=== PATIENT | male | born 1955 | race Caucasian/White ===

== ENCOUNTER → 2017-01-14 | Outpatient (CLI) | payer BC ==
[~2017-01-14] MED LIST: ASPCH81X PO; ASPI325T4 PO; ATOR-22 PO; ATOR-24 PO; CHOL20009 PO; CHOLTAB3 PO; DAPA1TAB2 PO; INSPMPNVLG; METO25TA3 PO; NXM/40 PO; OMEP40CA41 PO; TAMS0.4C38 PO; TAMS0.4C59 PO; TPRSR/25 PO
[2017-01-14 09:57] LABS: BLOOD UREA NITROGEN 21 mg/dl (7-18); BUN/CREATININE RATIO 17.5 (10-20); CALCIUM 8.6 mg/dl (8.5-10.1); CARBON DIOXIDE 28 mmol/L (21-32); CHLORIDE 107 mmol/L (98-107); GLUCOSE 145 mg/dl (70-99); POTASSIUM 4.4 mmol/L (3.5-5.1); SODIUM 141 mmol/L (136-145)
[2017-01-14 10:09] LABS: ALB/GLOB RATIO 0.9 (0.9-2); ALKALINE PHOSPHATASE 76 U/L (45-117); ALT/SGPT 23 U/L (12-78); AST/SGOT 43 U/L (15-37); CHOLESTEROL 151 mg/dl (0-200); HDL CHOLESTEROL 38 mg/dl; TRIGLYCERIDES 131 mg/dl (0-150); VERY LOW DENSITY LIPOPROT CALC 26 mg/dl
[2017-01-14 10:13] LABS: ESTIMATED AVERAGE GLUCOSE 157 mg/dl; HA1C FLAG Normal (Normal)
== END | disposition home or self-care (01) ==
LOC: C.LAB 06:42
PROVIDERS: ATTEND Internal Medicine
DX: E78.2 Mixed hyperlipidemia (principal); E10.9 Type 1 diabetes mellitus without complications; E55.9 Vitamin D deficiency, unspecified; R94.6 Abnormal results of thyroid function studies; Z12.5 Encounter for screening for malignant neoplasm of prostate

== ENCOUNTER → 2017-03-12 | Outpatient (CLI) | payer BC ==
[~2017-03-12] MED LIST changes: -ASPI325T4 PO; -ATOR-22 PO; -CHOLTAB3 PO; -DAPA1TAB2 PO; +DAPA1TAB8 PO; -NXM/40 PO; -TAMS0.4C59 PO; -TPRSR/25 PO
[2017-03-12 11:13] LABS: ALT/SGPT 28 U/L (12-78); AST/SGOT 46 U/L (15-37)
== END | disposition home or self-care (01) ==
LOC: C.LABBC 08:38
PROVIDERS: ATTEND Internal Medicine Cardiovascular Disease
DX: E78.5 Hyperlipidemia, unspecified (principal); I25.10 Atherosclerotic heart disease of native coronary artery without angina pectoris

== ENCOUNTER → 2017-03-30 | Day surgery (SDC) | payer BC ==
[2017-03-08 15:38] VITALS: Ht 175.3 cm; Wt 113.6 kg
[~2017-03-30] VITALS: Ht 175.3 cm; Wt 113.6 kg
[~2017-03-30] MED LIST changes: +500ML BSS 0.3ML EPI 1:1000PF IRRIG ONE; +ACETAMINOPHEN 325 MG TAB PO PRN; +AMVISC PLUS 0.8ML SYRINGE INT OCU ONE; +ATROPINE SULFATE 0.1 MG/ML 5ML SYR IV PRN; +ENDOCOAT 0.85ML SYRINGE INT OCU ONE; +EpHEDrine SULFATE INJ 50 MG/ML AMP IV PRN; +EpINEphrine INJ 1MG/ML AMP 1 MG/ML AMP ONE; +LACTATED RINGER'S 1000ML 500 ML IV SCH; +LIDOCAINE 4% OP SOLN DROP CHARGE ONE; +LIDOCAINE 4% OP SOLN DROP CHARGE OPL SCH; +LIDOCAINE HCL 1% MPF 2 ML VIAL ONE; +MIDAZOLAM HCL 1 MG/ML 2ML VIAL ONE; +MIX: 4ML BSS 1ML EPI 1:1000 PF TOP ONE; +MOXIFLOXACIN OPH SOLN PER DROP CHARGE ONE; +PHENYLEPHRINE HCL 10% OP SOLN 5 ML BTL OPL ONE; +POVIDONE-IODINE OP SOLN 30 ML BTL ONE; +PROPARACAINE 0.5% OP SOLN PER DROP CHARGE OPL SCH; +PROPARACAINE HCL 0.5% OP SOLN 15 ML BTL OPL ONE; +TOBRAMYCIN/DEXAMETHASONE OPH OINT PER APPLN CHARGE ONE
--- NOTE | 2017-03-30 08:09 | History & Physical Bridge - SC ---
H&P Re-Evaluation Bridge Note: I have examined the patient, reviewed the History & Physical and in the interval since the performance of the History & Physical I have noted the following changes of clinical significance: No changes noted. Left eye femtosecond laser-assisted cataract surgery.
[2017-03-30] MEDS: PHENYLEPHRINE HCL 2.5% OP SOLN PER DROP CHARGE OPL SCH ×3 (08:29→08:38)
[2017-03-30] MEDS: TROPICAMIDE 1% OP SOLN PER DROP CHARGE OPL SCH ×3 (08:30→08:39)
[2017-03-30] MEDS: CYCLOPENTOLATE HCL 1% OP SOLN PER DROP CHARGE OPL SCH ×3 (08:31→08:41)
[2017-03-30] MEDS: MOXIFLOXACIN OPH SOLN PER DROP CHARGE OPL SCH ×3 (08:32→08:42)
--- NOTE | 2017-03-30 09:29 | [facility] Post Operative Brief Note ---
Immediate Operative Summary Operative Date Mar 30, 2017. Pre-Operative Diagnosis Left Eye cataract Post-Operative Diagnosis same Procedure(s) Performed Left Cataract Phacoemulsification With Intraocular Lens Implant Surgeon Dr. Justin Fleming Correctional Captain Surgeon(s) 0 Estimated Blood Loss 0 Findings left cataract Specimens none Complication(s) None Disposition
[2017-03-30 09:31] VITALS: TEMP 36.4
--- NOTE | 2017-03-30 09:31 | [facility] Operative Report ---
Operative Report Date of Service Mar 30, 2017. Operative Report DATE OF OPERATION: 03/30/17 PREOPERATIVE DIAGNOSIS: Senile nuclear cataract and astigmatism, left eye POSTOPERATIVE DIAGNOSIS: Senile nuclear cataract and astigmatism, left eye PROCEDURE PERFORMED: Femtosecond laser-assisted phacoemulsification with intraocular lens implantation, left eye SURGEON: Dr. Miguel Fleming ANESTHESIA: Topical with 1% intracameral lidocaine and monitored anesthesia care COMPLICATIONS: None DESCRIPTION OF PROCEDURE: After positively identifying the patient both verbally and by wristband in the preoperative area, the left eye was marked as the operative eye. Using a sterile marker, the 3:00, 6:00, and 9:00 positions on the limbus were marked after placing a drop of proparacaine. The patient was first brought to the laser room where the femtosecond laser was used to create the capsulotomy, lens fragmentation, arcuate incisions, and main incision. The patient was then brought back to the operating room by the anesthesia and nursing staff where they were given a drop of tetracaine and betadine into the operative eye. They were then sterilely prepped and draped in the standard fashion typical for ophthalmic surgery. Steri-strips were placed along the upper eyelids to keep the lashes back, and a lid speculum was placed into the operative eye. At this point, a documented time out was performed with members of the ophthalmology, nursing, and anesthesia staffs all agreeing upon the correct patient, correct location for surgery, correct procedure, and correct type and power of intraocular lens to be implanted. The microscope was then swung into position. Then, a paracentesis wound was made using a sideport blade. Then, in sequence, 1% preservative-free lidocaine followed by Endocoat viscoelastic was injected into the anterior chamber. Next , the main incision was opened with a Abhi spatula, and Utrata forceps were used to remove the capsulotomy. Hydrodissection was then performed with BSS on a flat-tip cannula. Next, the phacoemulsification handpiece was introduced into the eye and used to remove the nucleus in a [id number] fashion. This was done without complication and then the irrigation-aspiration handpiece was introduced into the eye and used to remove all remaining cortical and epinuclear material. Amvisc was then injected into the anterior chamber as well as into the capsular bag and using the lens injector system, a ZXR00 9.0 D lens, serial number [id number], and expiration date 12/2021 was injected into the capsular bag and rotated into the correct position. Next, the irrigation- aspiration handpiece was used to remove all remaining Amvisc. BSS was used to hydrate the main wound, and then BSS was injected into the paracentesis site to reach physiologic pressure and then the main wound was checked and found to be watertight. The patient was given drops of Vigamox and tobradex ointment into the operative eye, and then the surrounding area was cleaned and dried. A clear plastic shield was placed over the eye and the patient was then sat up and taken from the operating room by the anesthesia staff having tolerated the procedure well and suffering no complications. DISPOSITION: The patient was returned to the recovery room in stable condition. I attest to the content of the Intraoperative Record and any orders documented therein. Any exceptions are noted below.
--- NOTE | 2017-03-30 09:32 | Discharge Instructions-SurgCtr ---
Discharge Instructions Date of Service Mar 30, 2017. Visit Reason for Visit: Cataract Left Eye Discharge Discharge Diagnosis / Problem: left cataract Discharge Goals Goal(s): Decrease discomfort, Improve function Activity Recommendations Activity Limitations: as noted below Anesthesia . Post Anesthesia Instructions: If you have had General Anesthesia or IV Sedation: * Do not drive today. * Resume driving when surgeon permits. * Do not make important decisions or sign legal documents today. * Call surgeon for: 1. Temperature elevations greater than 101 degrees F. 2. Uncontrollable pain. 3. Excessive bleeding. 4. Persistent nausea and vomiting. 5. Medication intolerance (nausea, vomiting or rash). * For nausea and vomiting use only clear liquids such as: tea, soda, bouillon until nausea subsides, then gradually increase diet as tolerated. * If you have any concerns or questions, call your surgeon's office. If physician is unavailable and it is an emergency, call 911 or go to the nearest emergency room. . Instructions / Follow-Up Instructions / Follow-Up ACTIVITY RECOMMENDATIONS: * Light activities. * You may walk outside, read, watch television. * You may notice redness on the white part of the eye and some blurry vision - this is normal. MEDICATIONS: Resume previous medications unless instructed otherwise by your surgeon. Start all eye drops at 11:30 am today: * Eye drops (today): Prednisone - one drop in operative eye every 2 hours while awake Ofloxacin - one drop in operative eye every 2 hours while awake Ilevro - one drop in operative eye daily SPECIAL CARE INSTRUCTIONS: * Tape plastic shield over eye to sleep at night. Call your doctor at with any concerns or problems. FOLLOW UP VISIT: Follow-up with Dr Fleming at [facility] as scheduled. Diet Recommendations Home Diet: no limitations Procedures Procedures Performed: Left Cataract Phacoemulsification With Intraocular Lens Implant Pending Studies Studies pending at discharge: no Medical Emergencies . Who to Call and When: Medical Emergencies: If at any time you feel your situation is an emergency, please call 911 immediately. . Non-Emergent Contact Non-Emergency issues call your: Surgeon . . "Provider Documentation" section prepared by Miguel Fleming. .
[2017-03-30 10:10] VITALS: BP 138/84; PULSE 63; O2SAT 97
--- NOTE | 2017-03-30 10:15 | Anesthesia Progress Nt - [facility] ---
Anesthesia Post Op Note Date & Time Mar 30, 2017 at 10:15 Vital Signs Pain Intensity: 4 Vital Signs Past 12 Hours Date Time Temp Pulse Resp B/P (MAP) Pulse Ox O2 Delivery O2 Flow Rate FiO2 03/30/17 10:10 63 16 138/84 (102) 97 Room Air 03/30/17 09:31 36.4 65 16 145/90 (108) 95 Room Air 03/30/17 09:00 64 154/80 97 03/30/17 07:56 36.5 71 18 137/89 (105) 95 Room Air Notes Mental Status: alert / awake / arousable, participated in evaluation Pt Amnestic to Procedure: Yes Nausea / Vomiting: adequately controlled Pain: adequately controlled Airway Patency, RR, SpO2: stable & adequate BP & HR: stable & adequate Hydration State: stable & adequate Anesthetic Complications: no major complications apparent
== END | disposition home or self-care (01) ==
LOC: X.SURG 07:46
PROVIDERS: ATTEND Ophthalmology
DX: H25.12 Age-related nuclear cataract, left eye (principal); H52.202 Unspecified astigmatism, left eye; E11.9 Type 2 diabetes mellitus without complications; I10 Essential (primary) hypertension; E78.00 Pure hypercholesterolemia, unspecified

== ENCOUNTER → 2017-04-09 | Outpatient (CLI) | payer BC ==
[~2017-04-09] MED LIST changes: -500ML BSS 0.3ML EPI 1:1000PF IRRIG ONE; -ACETAMINOPHEN 325 MG TAB PO PRN; -AMVISC PLUS 0.8ML SYRINGE INT OCU ONE; -ATROPINE SULFATE 0.1 MG/ML 5ML SYR IV PRN; -ENDOCOAT 0.85ML SYRINGE INT OCU ONE; -EpHEDrine SULFATE INJ 50 MG/ML AMP IV PRN; -EpINEphrine INJ 1MG/ML AMP 1 MG/ML AMP ONE; -LACTATED RINGER'S 1000ML 500 ML IV SCH; -LIDOCAINE 4% OP SOLN DROP CHARGE ONE; -LIDOCAINE 4% OP SOLN DROP CHARGE OPL SCH; -LIDOCAINE HCL 1% MPF 2 ML VIAL ONE; -MIDAZOLAM HCL 1 MG/ML 2ML VIAL ONE; -MIX: 4ML BSS 1ML EPI 1:1000 PF TOP ONE; -MOXIFLOXACIN OPH SOLN PER DROP CHARGE ONE; -PHENYLEPHRINE HCL 10% OP SOLN 5 ML BTL OPL ONE; -POVIDONE-IODINE OP SOLN 30 ML BTL ONE; -PROPARACAINE 0.5% OP SOLN PER DROP CHARGE OPL SCH; -PROPARACAINE HCL 0.5% OP SOLN 15 ML BTL OPL ONE; -TOBRAMYCIN/DEXAMETHASONE OPH OINT PER APPLN CHARGE ONE
[2017-04-09 09:13] LABS: ALT/SGPT 26 U/L (12-78); AST/SGOT 39 U/L (15-37)
== END | disposition home or self-care (01) ==
LOC: C.LAB 08:10
PROVIDERS: ATTEND Internal Medicine Cardiovascular Disease
DX: E78.5 Hyperlipidemia, unspecified (principal)

== ENCOUNTER → 2017-04-20 | Outpatient (CLI) | payer BC ==
[~2017-04-20] MED LIST changes: +DAPA1TAB2 PO; -DAPA1TAB8 PO
--- NOTE | 2017-04-20 07:38 | DIAGNOSTIC IMAGING REPORT ---
ULTRASOUND RIGHT UPPER QUADRANT ABDOMEN CLINICAL HISTORY: Elevated hepatic transaminases. Hemangioma.. COMPARISON STUDY: Chest CT dated 05/08/2015. TECHNIQUE: Real-time, grayscale, and color flow sonography of the right upper quadrant of the abdomen was performed. Images are reviewed in the transverse and longitudinal planes. FINDINGS: Liver: The liver is normal in size and demonstrates heterogeneously increased echotexture consistent with hepatic steatosis. There is a 1.7 cm slightly hypoechoic lesion seen in the inferior right lobe. There is no intrahepatic biliary ductal dilatation. The main portal vein is patent. Gallbladder: The gallbladder is surgically absent. The common bile duct measures up to 0.6 cm in diameter. Pancreas: Not well visualized due to overlying bowel gas. Right kidney: Survey images of the right kidney demonstrate mild cortical atrophy. There is no hydronephrosis. Ascites: None. IMPRESSION: 1. Hepatic steatosis. 2. The gallbladder is surgically absent. 3. There is a 1.7 cm slightly hypoechoic lesion in the inferior right lobe of the liver. When correlated with the 05/08/2015 examination is likely represents a benign hemangioma. The appearance is atypical, likely due to background steatosis. Electronically signed by: Kavon Moreno M.D. 04/20/2017 7:36 AM Dictated Date/Time: 04/20/2017 7:34 AM
== END | disposition home or self-care (01) ==
LOC: C.ULTR 06:54
PROVIDERS: ATTEND Internal Medicine
DX: D18.03 Hemangioma of intra-abdominal structures (principal); R94.5 Abnormal results of liver function studies; K76.0 Fatty (change of) liver, not elsewhere classified

== ENCOUNTER → 2017-05-04 | Day surgery (SDC) | payer BC ==
[2017-04-07 14:38] VITALS: BMI 37.0
[2017-04-18 12:15] VITALS: Ht 175.3 cm; Wt 113.6 kg
[~2017-05-04] VITALS: Ht 175.3 cm; Wt 113.6 kg
[~2017-05-04] MED LIST changes: +500ML BSS 0.3ML EPI 1:1000PF IRRIG ONE; +ACETAMINOPHEN 325 MG TAB PO PRN; +AMVISC PLUS 0.8ML SYRINGE INT OCU ONE; +ATROPINE SULFATE 0.1 MG/ML 5ML SYR IV PRN; +AcetaZOLAMIDE 250 MG TAB PO SCH; +BSS FLUSH ONE; +CYCLOPENTOLATE HCL 1% OP SOLN PER DROP CHARGE OPR SCH; +ENDOCOAT 0.85ML SYRINGE INT OCU ONE; +EpHEDrine SULFATE INJ 50 MG/ML AMP IV PRN; +EpINEphrine INJ 1MG/ML AMP 1 MG/ML AMP ONE; +FENTANYL CITRATE INJ 50 MCG/1 ML 2 ML VIAL IV PRN; +FENTANYL CITRATE INJ 50 MCG/1 ML 2 ML VIAL ONE; +FLUMAZENIL 0.1 MG/1 ML 10 ML VIAL IV PRN; +LABETALOL HCL IV 5 MG/ML 20ML IV PRN; +LACTATED RINGER'S 1000ML 500 ML IV SCH; +LIDOCAINE 4% OP SOLN DROP CHARGE ONE; +LIDOCAINE 4% OP SOLN DROP CHARGE OPR SCH; +LIDOCAINE HCL 1% MPF 2 ML VIAL ONE; +MEPERIDINE HCL 25 MG/ML CARP IV PRN; +MIDAZOLAM HCL 1 MG/ML 2ML VIAL ONE; +MIX: 4ML BSS 1ML EPI 1:1000 PF TOP ONE; +MOXIFLOXACIN OPH SOLN PER DROP CHARGE ONE; +MOXIFLOXACIN OPH SOLN PER DROP CHARGE OPR SCH; +NALOXONE HCL 0.4 MG/1 ML VIAL/CARP IV PRN; +ONDANSETRON INJ 2 MG/ML 2 ML VIAL IV PRN; +PHENYLEPHRINE 100MCG/ML 5ML SYR IV PRN; +PHENYLEPHRINE HCL 10% OP SOLN 5 ML BTL OPR ONE; +PHENYLEPHRINE HCL 2.5% OP SOLN PER DROP CHARGE OPR SCH; +POVIDONE-IODINE OP SOLN 30 ML BTL ONE; +PROPARACAINE 0.5% OP SOLN PER DROP CHARGE OPR SCH; +PROPARACAINE HCL 0.5% OP SOLN 15 ML BTL OPR ONE; +TOBRAMYCIN/DEXAMETHASONE OPH OINT PER APPLN CHARGE ONE; +TROPICAMIDE 1% OP SOLN PER DROP CHARGE OPR SCH
--- NOTE | 2017-05-04 06:37 | History & Physical Bridge - [place] ---
H&P Re-Evaluation Bridge Note: I have examined the patient, reviewed the History & Physical and in the interval since the performance of the History & Physical I have noted the following changes of clinical significance: No changes noted. Right eye cataract surgery.
[2017-05-04] MEDS: PHENYLEPHRINE HCL 10% OP SOLN PER DROP CHARGE OPR SCH ×3 (07:09→07:19)
[2017-05-04] MEDS: TROPICAMIDE 1% OP SOLN PER DROP CHARGE OPR SCH ×3 (07:10→07:20)
[2017-05-04] MEDS: CYCLOPENTOLATE HCL 1% OP SOLN PER DROP CHARGE OPR SCH ×3 (07:11→07:21)
[2017-05-04] MEDS: MOXIFLOXACIN OPH SOLN PER DROP CHARGE OPR SCH ×3 (07:12→07:22)
--- NOTE | 2017-05-04 08:20 | [facility] Post Operative Brief Note ---
Immediate Operative Summary Operative Date May 04, 2017. Pre-Operative Diagnosis Cataract Right Eye Post-Operative Diagnosis Same Procedure(s) Performed Right Cataract Phacoemulsification With Intraocular Lens Implant; Symfony Lens Surgeon Dr. Fleming Sifting Operator Surgeon(s) None Estimated Blood Loss 0 Findings right cataract Specimens None Complication(s) None Disposition
--- NOTE | 2017-05-04 08:23 | [facility] Operative Report ---
Operative Report Date of Service May 04, 2017. Operative Report DATE OF OPERATION: 05/04/17 PREOPERATIVE DIAGNOSIS: Senile nuclear cataract and astigmatism, right eye POSTOPERATIVE DIAGNOSIS: Senile nuclear cataract and astigmatism, right eye PROCEDURE PERFORMED: Femtosecond laser-assisted phacoemulsification with intraocular lens implantation, right eye SURGEON: Dr. Miguel Fleming ANESTHESIA: Topical with 1% intracameral lidocaine and monitored anesthesia care COMPLICATIONS: None DESCRIPTION OF PROCEDURE: After positively identifying the patient both verbally and by wristband in the preoperative area, the right eye was marked as the operative eye. Using a sterile marker, the 3:00, 6:00, and 9:00 positions on the limbus were marked after placing a drop of proparacaine. The patient was first taken to the laser room where the femtosecond laser was used to create the capsulotomy, lens fragmentation, main incision, and arcuate incisions. The patient was then brought back to the operating room by the anesthesia and nursing staff where they were given a drop of tetracaine and betadine into the operative eye. They were then sterilely prepped and draped in the standard fashion typical for ophthalmic surgery. Steri-strips were placed along the upper eyelids to keep the lashes back, and a lid speculum was placed into the operative eye. At this point, a documented time out was performed with members of the ophthalmology, nursing, and anesthesia staffs all agreeing upon the correct patient, correct location for surgery, correct procedure, and correct type and power of intraocular lens to be implanted. The microscope was then swung into position. Then, a paracentesis wound was made using a sideport blade. Then, in sequence, 1% preservative-free lidocaine followed by Endocoat viscoelastic was injected into the anterior chamber. Next , the main incision was opened with a Abhi spatula, and Utrata forceps were used to remove the capsulotomy. Hydrodissection was then performed with BSS on a flat-tip cannula. Next, the phacoemulsification handpiece was introduced into the eye and used to remove the nucleus in a [id number] fashion. This was done without complication and then the irrigation-aspiration handpiece was introduced into the eye and used to remove all remaining cortical and epinuclear material. Amvisc was then injected into the anterior chamber as well as into the capsular bag and using the lens injector system, a ZXR00 9.5 D lens, serial number [id number], and expiration date 02/2022 was injected into the capsular bag and rotated into the correct position. Next, the irrigation- aspiration handpiece was used to remove all remaining Amvisc. BSS was used to hydrate the main wound, and then BSS was injected into the paracentesis site to reach physiologic pressure and then the main wound was checked and found to be watertight. The patient was given drops of Vigamox and tobradex ointment into the operative eye, and then the surrounding area was cleaned and dried. A clear plastic shield was placed over the eye and the patient was then sat up and taken from the operating room by the anesthesia staff having tolerated the procedure well and suffering no complications. DISPOSITION: The patient was returned to the recovery room in stable condition. I attest to the content of the Intraoperative Record and any orders documented therein. Any exceptions are noted below.
--- NOTE | 2017-05-04 08:24 | Discharge Instructions-SurgCtr ---
Discharge Instructions Date of Service May 04, 2017. Visit Reason for Visit: Cataract Right Eye Discharge Discharge Diagnosis / Problem: right cataract Discharge Goals Goal(s): Decrease discomfort, Improve function Activity Recommendations Activity Limitations: as noted below Anesthesia . Post Anesthesia Instructions: If you have had General Anesthesia or IV Sedation: * Do not drive today. * Resume driving when surgeon permits. * Do not make important decisions or sign legal documents today. * Call surgeon for: 1. Temperature elevations greater than 101 degrees F. 2. Uncontrollable pain. 3. Excessive bleeding. 4. Persistent nausea and vomiting. 5. Medication intolerance (nausea, vomiting or rash). * For nausea and vomiting use only clear liquids such as: tea, soda, bouillon until nausea subsides, then gradually increase diet as tolerated. * If you have any concerns or questions, call your surgeon's office. If physician is unavailable and it is an emergency, call 911 or go to the nearest emergency room. . Instructions / Follow-Up Instructions / Follow-Up ACTIVITY RECOMMENDATIONS: * Light activities. * You may walk outside, read, watch television. * You may notice redness on the white part of the eye and some blurry vision - this is normal. MEDICATIONS: Resume previous medications unless instructed otherwise by your surgeon. Start all eye drops at 10:30 am today: * Eye drops (today): Prednisone - one drop in operative eye every 2 hours while awake Ofloxacin - one drop in operative eye every 2 hours while awake Ilevro - one drop in operative eye daily SPECIAL CARE INSTRUCTIONS: * Tape plastic shield over eye to sleep at night. Call your doctor at with any concerns or problems. FOLLOW UP VISIT: Follow-up with Dr Fleming at [facility] as scheduled. Diet Recommendations Home Diet: no limitations Procedures Procedures Performed: Right Cataract Phacoemulsification With Intraocular Lens Implant; Symfony Lens Pending Studies Studies pending at discharge: no Medical Emergencies . Who to Call and When: Medical Emergencies: If at any time you feel your situation is an emergency, please call 911 immediately. . Non-Emergent Contact Non-Emergency issues call your: Surgeon . . "Provider Documentation" section prepared by Miguel Fleming. .
--- NOTE | 2017-05-04 08:53 | Anesthesia Progress Nt - [facility] ---
Anesthesia Post Op Note Date & Time May 04, 2017 at 08:52 Vital Signs Pain Intensity: 0 Vital Signs Past 12 Hours Date Time Temp Pulse Resp B/P (MAP) Pulse Ox O2 Delivery O2 Flow Rate FiO2 05/04/17 08:20 36.1 82 16 144/86 (105) 95 Room Air 05/04/17 07:48 69 16 163/97 96 05/04/17 07:38 71 16 156/90 96 05/04/17 06:59 36.6 78 20 144/86 (105) 95 Room Air Notes Mental Status: alert / awake / arousable, participated in evaluation Pt Amnestic to Procedure: Yes Nausea / Vomiting: adequately controlled Pain: adequately controlled Airway Patency, RR, SpO2: stable & adequate BP & HR: stable & adequate Hydration State: stable & adequate Anesthetic Complications: no major complications apparent
[2017-05-04 09:05] VITALS: BP 126/83; PULSE 60; TEMP 36.5; O2SAT 96
== END | disposition home or self-care (01) ==
LOC: X.SURG 06:35
PROVIDERS: ATTEND Ophthalmology
DX: H25.11 Age-related nuclear cataract, right eye (principal); I10 Essential (primary) hypertension; E78.00 Pure hypercholesterolemia, unspecified; E11.9 Type 2 diabetes mellitus without complications; Z79.4 Long term (current) use of insulin; Z79.899 Other long term (current) drug therapy

== ENCOUNTER → 2017-05-13 | Outpatient (CLI) | payer BC ==
[~2017-05-13] MED LIST changes: -500ML BSS 0.3ML EPI 1:1000PF IRRIG ONE; -ACETAMINOPHEN 325 MG TAB PO PRN; -AMVISC PLUS 0.8ML SYRINGE INT OCU ONE; -ATROPINE SULFATE 0.1 MG/ML 5ML SYR IV PRN; -AcetaZOLAMIDE 250 MG TAB PO SCH; -BSS FLUSH ONE; -CYCLOPENTOLATE HCL 1% OP SOLN PER DROP CHARGE OPR SCH; -ENDOCOAT 0.85ML SYRINGE INT OCU ONE; -EpHEDrine SULFATE INJ 50 MG/ML AMP IV PRN; -EpINEphrine INJ 1MG/ML AMP 1 MG/ML AMP ONE; -FENTANYL CITRATE INJ 50 MCG/1 ML 2 ML VIAL IV PRN; -FENTANYL CITRATE INJ 50 MCG/1 ML 2 ML VIAL ONE; -FLUMAZENIL 0.1 MG/1 ML 10 ML VIAL IV PRN; -LABETALOL HCL IV 5 MG/ML 20ML IV PRN; -LACTATED RINGER'S 1000ML 500 ML IV SCH; -LIDOCAINE 4% OP SOLN DROP CHARGE ONE; -LIDOCAINE 4% OP SOLN DROP CHARGE OPR SCH; -LIDOCAINE HCL 1% MPF 2 ML VIAL ONE; -MEPERIDINE HCL 25 MG/ML CARP IV PRN; -MIDAZOLAM HCL 1 MG/ML 2ML VIAL ONE; -MIX: 4ML BSS 1ML EPI 1:1000 PF TOP ONE; -MOXIFLOXACIN OPH SOLN PER DROP CHARGE ONE; -MOXIFLOXACIN OPH SOLN PER DROP CHARGE OPR SCH; -NALOXONE HCL 0.4 MG/1 ML VIAL/CARP IV PRN; -ONDANSETRON INJ 2 MG/ML 2 ML VIAL IV PRN; -PHENYLEPHRINE 100MCG/ML 5ML SYR IV PRN; -PHENYLEPHRINE HCL 10% OP SOLN 5 ML BTL OPR ONE; -PHENYLEPHRINE HCL 2.5% OP SOLN PER DROP CHARGE OPR SCH; -POVIDONE-IODINE OP SOLN 30 ML BTL ONE; -PROPARACAINE 0.5% OP SOLN PER DROP CHARGE OPR SCH; -PROPARACAINE HCL 0.5% OP SOLN 15 ML BTL OPR ONE; -TOBRAMYCIN/DEXAMETHASONE OPH OINT PER APPLN CHARGE ONE; -TROPICAMIDE 1% OP SOLN PER DROP CHARGE OPR SCH
== END | disposition home or self-care (01) ==
LOC: C.LAB 09:34
PROVIDERS: ATTEND Internal Medicine
DX: E55.9 Vitamin D deficiency, unspecified (principal); Z11.4 Encounter for screening for human immunodeficiency virus [HIV]; Z11.59 Encounter for screening for other viral diseases

== ENCOUNTER → 2017-06-30 | Outpatient (CLI) | payer BC ==
[2017-06-30 10:04] LABS: ALT/SGPT 30 U/L (12-78); BLOOD UREA NITROGEN 22 mg/dl (7-18); CALCIUM 8.6 mg/dl (8.5-10.1); CARBON DIOXIDE 28 mmol/L (21-32); CHLORIDE 107 mmol/L (98-107); CHOLESTEROL 143 mg/dl (0-200); ESTIMATED AVERAGE GLUCOSE 146 mg/dl; GLUCOSE 163 mg/dl (70-99); HA1C FLAG Normal (Normal); POTASSIUM 4.4 mmol/L (3.5-5.1); SODIUM 139 mmol/L (136-145); TRIGLYCERIDES 105 mg/dl (0-150); VERY LOW DENSITY LIPOPROT CALC 21 mg/dl
[2017-06-30 10:14] LABS: ALKALINE PHOSPHATASE 89 U/L (45-117); AST/SGOT 52 U/L (15-37); CHOLESTEROL/HDL RATIO 3.3; HDL CHOLESTEROL 44 mg/dl; LDL CHOLESTEROL CALCULATED 78 mg/dl
== END | disposition home or self-care (01) ==
LOC: C.LAB 07:01
PROVIDERS: ATTEND Nurse Practitioner Family
DX: E10.9 Type 1 diabetes mellitus without complications (principal)

== ENCOUNTER → 2017-10-19 | Outpatient (CLI) | payer BC ==
[~2017-10-19] MED LIST changes: +CYAN100020 PO; -DAPA1TAB2 PO; +DAPA1TAB8 PO; +SYN75 PO
[2017-10-19 09:48] LABS: HEMOGLOBIN A1C 6.7 % (4.5-5.6)
== END | disposition home or self-care (01) ==
LOC: C.LAB 06:57
PROVIDERS: ATTEND Nurse Practitioner Family
DX: E10.9 Type 1 diabetes mellitus without complications (principal)

== ENCOUNTER 2017-11-01 23:46 | Emergency (ER) | payer BC ==
[~2017-11-01] VITALS: Ht 175.3 cm; Wt 119.4 kg
[~2017-11-01 23:46] MED LIST changes: -CYAN100020 PO; -OPTIRAY 320 IV PRN; -SYN75 PO
[2017-11-01 23:48] VITALS: TEMP 36.4; Ht 175.3 cm; Wt 119.4 kg
[2017-11-02] MEDS ORDERED: SODIUM CHLORIDE 0.9% 1000ML 1,000 ML IV STA (00:25)
[2017-11-02] MEDS ORDERED: SYN75 PO (00:31)
[2017-11-02] MEDS ORDERED: CYAN100020 PO (00:32)
[2017-11-02] MEDS ORDERED: KETOROLAC TROMETHAMINE 30 MG/ML VIAL IV STA (00:35)
[2017-11-02 00:39] LABS: BASO % 0.2 %; BASO ABS # 0.02 K/uL (0-0.2); EOS % 1.4 %; EOS ABS # 0.12 K/uL (0-0.5); HEMATOCRIT 45.6 % (42-52); IG# 0.02 K/uL (0.00-0.02); LYMPH ABS # 2.67 K/uL (1.2-3.4); MEAN CELL VOLUME 86.4 fL (80-100); MEAN CORPUSCULAR HEMOGLOBIN 30.3 pg (25-34); MEAN CORPUSCULAR HGB CONC 35.1 g/dl (32-36); MEAN PLATELET VOLUME 9.3 fL (7.4-10.4); MONO ABS # 0.69 K/uL (0.11-0.59); NEUT % 59.2 %; PLATELET COUNT 190 K/uL (130-400); RED CELL DISTRIBUTION WIDTH CV 13.8 % (11.5-14.5); RED CELL DISTRIBUTION WIDTH SD 43.5 fL (36.4-46.3); WHITE BLOOD COUNT 8.62 K/uL (4.8-10.8)
[2017-11-02 00:55] LABS: ALBUMIN 3.8 gm/dl (3.4-5.0); CALCIUM 9.1 mg/dl (8.5-10.1); CREATININE 1.14 mg/dl (0.60-1.40); POTASSIUM 3.2 mmol/L (3.5-5.1); TOTAL PROTEIN 7.8 gm/dl (6.4-8.2)
[2017-11-02] MEDS ORDERED: HYDROmorphone INJ 2 MG/ML SYR/VIAL IV STA (01:53)
[2017-11-02] MEDS ORDERED: BENTYL HOME PACK 10 MG VIAL PO ONE (03:00)
[2017-11-02 03:02] VITALS: BP 146/87; PULSE 65; O2SAT 96
--- NOTE | 2017-11-02 08:59 | EMERGENCY ROOM VISIT NOTE ---
History Report prepared by [facility]: Nasima Becerra Under the Supervision of: Dr. Roxana Tabor D.O. First contact with patient: 23:49 Chief Complaint: ABDOMINAL PAIN Stated Complaint: ABDOMINAL PAIN Nursing Triage Summary: Pt brought in by EMS. Pt complains of abdominal pain for 5 days. Pt was here and had testing with no conclusive dx. Pt remains with abdominal pain. Blood sugar was 68 for EMS. Pt is diabetic and has insulin pump. Blood sugar is 57 here. Pt given orange juice. History of Present Illness The patient is a 61 year old male who presents to the Emergency Room with complaints of worsening abdominal pain starting four days ago. The patient states that the pain feels like a dull, ache that radiates into his back. The patient complains of diarrhea, but believes that it is from the oral contrast he had today. The patient denies ever having this before, urinary symptoms, and hematochezia. The patient notes a history of a cholecystectomy, diabetes, and a bicuspid valve. He states that he takes Synthroid, Prilosec, and Metoprol. He states that his last colonoscopy was in 2015 that was normal. On review of past records, the patient was here earlier today. He had a CT of his abdomen and pelvis with IV contrast done that showed no acute findings. He had labs complete which included a CBC and Chemistry profile that were normal except for a BUN of 36 and a glucose of 163. Source of History: patient Onset: four days ago Position: abdomen Quality: ache, dull Timing: worsening Associated Symptoms: + back pain, + diarrhea, No hematochezia, No urinary symptoms Review of Systems See HPI for pertinent positives & negatives. A total of 10 systems reviewed and were otherwise negative. Past Medical & Surgical Medical Problems: (1) Bicuspid cardiac valve (2) Diabetes mellitus type I (3) Dyslipidemia (4) GERD (gastroesophageal reflux disease) Surgical Problems: (1) Status post cholecystectomy Family History Cancer Diabetes mellitus Gallbladder disease Hypertension Kidney disease Kidney stones Seizures Social History Smoking Status: Never Smoker Alcohol Use: none Drug Use: none Marital Status: Housing Status: lives with family Occupation Status: retired Current/Historical Medications Scheduled Aspirin (Aspirin Chewable), 81 MG PO QAM Atorvastatin (Lipitor), 40 MG PO QAM Cholecalciferol (Vitamin D), 1 TAB PO QAM Cyanocobalamin (Vitamin B12), 1,000 MCG PO DAILY Dapagliflozin Propanediol (Farxiga), 1 TAB PO QAM Insulin Aspart (novoLOG INSULIN PUMP ), 1 EA N/A UD Levothyroxine Sodium (Synthroid), 75 MCG PO DAILY Metoprolol Succ (Toprol Xl) (Toprol-Xl), 25 MG PO QAM Omeprazole (Prilosec), 40 MG PO BID Tamsulosin Hcl (Flomax), 0.4 MG PO QAM Allergies Coded Allergies: Codeine (Verified Allergy, Unknown, swelling, 11/02/17) Physical Exam Vital Signs Date Time Temp Pulse Resp B/P (MAP) Pulse Ox O2 Delivery O2 Flow Rate FiO2 11/02/17 03:02 65 16 146/87 96 11/02/17 02:48 65 16 146/87 96 Room Air 11/02/17 02:08 62 16 155/88 95 Room Air 11/02/17 01:08 67 16 140/82 96 Room Air 11/01/17 23:55 70 11/01/17 23:48 36.4 76 20 146/91 92 Room Air Physical Exam HEENT: Head - normocephalic and atraumatic Pupils are equal, round, and reactive to light. Extraocular eye muscles are intact, and sclera are anicteric. Nose - moist nasal mucosa without discharge. Mouth - moist buccal mucosa. Oropharynx is nonerythematous and there is no tonsillar exudate or edema noted. Neck: Supple; no JVD, nuchal rigidity, cervical lymphadenopathy. Heart: Regular rate and rhythm. There is a normal S1 and S2 with no clicks, or gallops appreciated. 2/6 systolic ejection murmur. Lungs: Clear to auscultation bilaterally with no wheezes, rales, or rhonchi. Abdomen: Soft, suprapubic pain with palpation, nondistended, with good bowel sounds. There are no palpable pulsatile masses or hepatosplenomegaly. There is no guarding, rigidity, or rebound noted. Rectal: Heme negative. Extremities: No evidence of cyanosis, clubbing, or edema. There are easily palpable peripheral pulses. Skin: warm and dry with good turgor and no rashes. Medical Decision & Procedures Laboratory Results 11/01/17 23:55 Red Blood Count 5.28, Mean Corpuscular Volume 86.4, Mean Corpuscular Hemoglobin 30.3, Mean Corpuscular Hemoglobin Concent 35.1, Mean Platelet Volume 9.3, Neutrophils (%) (Auto) 59.2, Lymphocytes (%) (Auto) 31.0, Monocytes (%) (Auto) 8.0, Eosinophils (%) (Auto) 1.4, Basophils (%) (Auto) 0.2, Neutrophils # (Auto) 5.10, Lymphocytes # (Auto) 2.67, Monocytes # (Auto) 0.69, Eosinophils # (Auto) 0.12, Basophils # (Auto) 0.02 11/01/17 23:55 Test 11/01/17 23:55 11/02/17 00:08 11/02/17 00:30 White Blood Count 8.62 K/uL (4.8-10.8) Red Blood Count 5.28 M/uL (4.7-6.1) Hemoglobin 16.0 g/dL (14.0-18.0) Hematocrit 45.6 % (42-52) Mean Corpuscular Volume 86.4 fL (80-100) Mean Corpuscular Hemoglobin 30.3 pg (25-34) Mean Corpuscular Hemoglobin Concent 35.1 g/dl (32-36) Platelet Count 190 K/uL (130-400) Mean Platelet Volume 9.3 fL (7.4-10.4) Neutrophils (%) (Auto) 59.2 % Lymphocytes (%) (Auto) 31.0 % Monocytes (%) (Auto) 8.0 % Eosinophils (%) (Auto) 1.4 % Basophils (%) (Auto) 0.2 % Neutrophils # (Auto) 5.10 K/uL (1.4-6.5) Lymphocytes # (Auto) 2.67 K/uL (1.2-3.4) Monocytes # (Auto) 0.69 K/uL (0.11-0.59) Eosinophils # (Auto) 0.12 K/uL (0-0.5) Basophils # (Auto) 0.02 K/uL (0-0.2) RDW Standard Deviation 43.5 fL (36.4-46.3) RDW Coefficient of Variation 13.8 % (11.5-14.5) Immature Granulocyte % (Auto) 0.2 % Immature Granulocyte # (Auto) 0.02 K/uL (0.00-0.02) Anion Gap 6.0 mmol/L (3-11) Est Creatinine Clear Calc Drug Dose 86.8 ml/min Estimated GFR () 80.0 Estimated GFR (Non- 69.0 BUN/Creatinine Ratio 21.0 (10-20) Calcium Level 9.1 mg/dl (8.5-10.1) Total Bilirubin 0.4 mg/dl (0.2-1) Aspartate Amino Transf (AST/SGOT) 36 U/L (15-37) Alanine Aminotransferase (ALT/SGPT) 24 U/L (12-78) Alkaline Phosphatase 102 U/L (45-117) Total Protein 7.8 gm/dl (6.4-8.2) Albumin 3.8 gm/dl (3.4-5.0) Globulin 4.0 gm/dl (2.5-4.0) Albumin/Globulin Ratio 1.0 (0.9-2) Lipase 182 U/L (73-393) Bedside Glucose 108 mg/dl (70-99) Urine Color YELLOW Urine Appearance CLEAR (CLEAR) Urine pH 5.5 (4.5-7.5) Urine Specific [place] 1.020 (1.000-1.030) Urine Protein NEG (NEG) Urine Glucose (UA) 3+ (NEG) Urine Ketones NEG (NEG) Urine Occult Blood NEG (NEG) Urine Nitrite NEG (NEG) Urine Bilirubin NEG (NEG) Urine Urobilinogen NEG (NEG) Urine Leukocyte Esterase NEG (NEG) Laboratory results per my review. Medications Administered Medications (Trade) Dose Ordered Sig/Rosey Route Start Time Stop Time Status Last Admin Dose Admin Sodium Chloride 1,000 ml @ 999 mls/hr Q1H1M STAT IV 11/02/17 00:25 11/02/17 01:25 DC 11/02/17 00:25 999 MLS/HR Ketorolac Tromethamine (Toradol Inj) 30 mg NOW STAT IV 11/02/17 00:35 11/02/17 00:36 DC 11/02/17 00:43 30 MG Hydromorphone HCl (Dilaudid Inj) 2 mg NOW STAT IV 11/02/17 01:53 11/02/17 01:55 DC 11/02/17 02:06 2 MG Dicyclomine HCl (Dicyclomine HCl 10MG Home Pack) 1 ea UD ONCE PO 11/02/17 03:00 11/02/17 03:01 DC 11/02/17 02:58 1 EA Procedure 0025: Ordered NSS 1000 ml @ 999 mls/hr IV. 0035: Ordered Toradol Inj 30 mg IV. 0153: Ordered Dilaudid Inj 2 mg IV. 0300: Ordered Dicyclomine HCl 1 ea PO. ED Course 0012: Past medical records reviewed. The patient was evaluated in room B10. A complete history and physical exam was performed. An IV lock was initiated and labs were drawn as above. 0025: Ordered NSS 1000 ml @ 999 mls/hr IV. 0035: Ordered Toradol Inj 30 mg IV. 0141: I reevaluated the patient and he has had no relief from pain medications. He would like something stronger. He went on to say that he has had these symptoms before when he had Diverticulitis. His CT was clear. He also reports similar symptoms when he had Pancreatitis. We will recheck his lipase. 0153: Ordered Dilaudid Inj 2 mg IV. 0244: Upon reevaluation, the patient is doing okay. I discussed findings and results with him. He verbalized agreement of the treatment plan. The patient was discharged home. 0300: Ordered Dicyclomine to use at home. Medical Decision The patient is a 61 year old male who presents to the Emergency Room with complaints of worsening abdominal pain starting four days ago. Differential diagnose include dehydration, colitis, GI bleeding, cystitis. LABS: Urinalysis positive for only glucose Potassium 3.2 BUN 24 Creatine 1.1 Glucose 62 Normal LFTs No leukocytosis Stable H&H Lipase 182 This is a 61-year-old male patient presents to the emergency department with suprapubic abdominal pain. Over the past couple of days, the patient has had some epigastric abdominal pain for which she's been evaluated by his primary care physician. In fact, he underwent laboratory testing a CT scan of the abdomen and pelvis earlier today which were unremarkable. The patient had to drink oral contrast for the CAT scan. Since that time, he's had diarrhea. He is now complaining of suprapubic abdominal pain. The patient was noted to have an elevated BUN on his laboratory studies from this morning. A rectal exam was performed and no blood was noted to account for the elevated BUN. The patient was hydrated with 1 L of normal saline solution but this did not improve his pain. He was given IV Toradol with no relief of the symptoms. He went on to receive IV Dilaudid which did relieve some of the discomfort. A urine specimen was obtained and was unremarkable. The patient was feeling much better at the time of discharge. I've asked him to rest over the next couple of days and follow-up with his PCP for recheck if the pain persists. If symptoms worsen, he was directed to return here to the ER. Medication Reconcilliation Current Medication List: was personally reviewed by me Blood Pressure Screening Patient's blood pressure: Elevated blood pressure Blood pressure disposition: Elevated BP felt to be situational Impression Primary Impression: Abdominal pain, suprapubic Scribe Attestation The scribe's documentation has been prepared under my direction and personally reviewed by me in its entirety. I confirm that the note above accurately reflects all work, treatment, procedures, and medical decision making performed by me. Departure Information Dispostion Home / Self-Care Referrals Dudley Vergara MD (PCP) Forms Call Back Authorization, HOME CARE DOCUMENTATION FORM, IMPORTANT VISIT INFORMATION Patient Instructions My [facility] Additional Instructions Rest. Take a bland diet and plenty of clear liquids Return to the ER if you have worsening symptoms take Bentyl if needed at home
== END 2017-11-02 03:02 | disposition home or self-care (01) ==
LOC: EDBD 23:46 → C.EDB 23:47
DX: R10.84 Generalized abdominal pain (principal); R19.7 Diarrhea, unspecified; E10.9 Type 1 diabetes mellitus without complications; K21.9 Gastro-esophageal reflux disease without esophagitis; E78.5 Hyperlipidemia, unspecified; Z96.41 Presence of insulin pump (external) (internal); Z90.49 Acquired absence of other specified parts of digestive tract; Z98.890 Other specified postprocedural states; Z83.3 Family history of diabetes mellitus; Z82.49 Family history of ischemic heart disease and other diseases of the circulatory system; Z84.1 Family history of disorders of kidney and ureter; Z82.0 Family history of epilepsy and other diseases of the nervous system; Z79.82 Long term (current) use of aspirin; Z79.899 Other long term (current) drug therapy

== ENCOUNTER → 2017-11-01 | Outpatient (CLI) | payer BC ==
[~2017-11-01] MED LIST changes: +OPTIRAY 320 IV PRN
[2017-11-01 13:26] LABS: BASO % 0.3 %; BASO ABS # 0.02 K/uL (0-0.2); EOS % 1.3 %; EOS ABS # 0.09 K/uL (0-0.5); HEMATOCRIT 44.5 % (42-52); HEMOGLOBIN 15.3 g/dL (14.0-18.0); IG# 0.02 K/uL (0.00-0.02); LYMPH % 23.8 %; LYMPH ABS # 1.71 K/uL (1.2-3.4); MEAN CELL VOLUME 86.7 fL (80-100); MEAN CORPUSCULAR HEMOGLOBIN 29.8 pg (25-34); MEAN CORPUSCULAR HGB CONC 34.4 g/dl (32-36); MEAN PLATELET VOLUME 9.6 fL (7.4-10.4); MONO % 8.1 %; MONO ABS # 0.58 K/uL (0.11-0.59); NEUT % 66.2 %; NEUT ABS # 4.78 K/uL (1.4-6.5); PLATELET COUNT 189 K/uL (130-400); RED CELL DISTRIBUTION WIDTH CV 13.8 % (11.5-14.5); RED CELL DISTRIBUTION WIDTH SD 43.5 fL (36.4-46.3)
--- NOTE | 2017-11-01 15:33 | DIAGNOSTIC IMAGING REPORT ---
CT SCAN OF THE ABDOMEN AND PELVIS WITH IV CONTRAST CLINICAL HISTORY: The gastric abdominal pain. COMPARISON STUDY: Abdominal ultrasound dated 04/20/2017. TECHNIQUE: Following the IV administration of 120 cc of Optiray 320, CT scan of the abdomen and pelvis is performed from the lung bases to the proximal femora. Images are reviewed in the axial, sagittal, and coronal planes. IV contrast was administered without complication. A dose lowering technique was utilized adhering to the principles of ALARA. CT DOSE: 1087.78 mGycm FINDINGS: Lung bases: The heart is normal in size and without pericardial effusion. The lung bases are clear. There is a tiny hiatal hernia. Liver: The contrast-enhanced liver is normal in size, contour, and attenuation. There is mild central intrahepatic biliary ductal dilatation. The hepatic veins and portal veins are patent. A 10 mm cyst is seen in the left hepatic lobe. Gallbladder: Surgically absent noting clips in the gallbladder fossa. Spleen: Normal in size and attenuation. Pancreas: Moderately atrophic and grossly unremarkable. Adrenal glands: Unremarkable. Kidneys: The contrast enhanced kidneys demonstrate mild cortical atrophy and are without hydronephrosis. The kidneys enhance symmetrically. Bilateral parapelvic cysts are identified. Abdominal vasculature: The abdominal aorta is normal in course and caliber noting mild atherosclerotic calcification. Bowel: There is moderate colonic diverticulosis without CT evidence of acute diverticulitis. No bowel obstruction is seen. The appendix is well-visualized and normal. A small duodenal diverticulum is noted. Peritoneum: There is no intraperitoneal free air or abdominal ascites. There is a fat-containing umbilical hernia. Lymphadenopathy: None. Pelvic viscera: There is median lobe hypertrophy of the prostate gland. The bladder is normal as visualized. Skeletal structures: A hemangioma is seen in the body of L2. No lytic or blastic lesions are seen. IMPRESSION: 1. There are no acute infectious or inflammatory findings in the abdomen or pelvis. 2. Moderate colonic diverticulosis without CT evidence of acute diverticulitis. 3. Additional findings as above. Electronically signed by: Kavon Moreno M.D. 11/01/2017 3:31 PM Dictated Date/Time: 11/01/2017 3:19 PM
[2017-11-01 17:10] LABS: ALBUMIN 3.6 gm/dl (3.4-5.0); ALKALINE PHOSPHATASE 92 U/L (45-117); ALT/SGPT 25 U/L (12-78); AST/SGOT 37 U/L (15-37); BLOOD UREA NITROGEN 36 mg/dl (7-18); CALCIUM 9.2 mg/dl (8.5-10.1); CARBON DIOXIDE 27 mmol/L (21-32); CREATININE 1.31 mg/dl (0.60-1.40); GLUCOSE 163 mg/dl (70-99); LIPASE 194 U/L (73-393); POTASSIUM 4.6 mmol/L (3.5-5.1); SODIUM 136 mmol/L (136-145); TOTAL PROTEIN 7.5 gm/dl (6.4-8.2)
== END | disposition home or self-care (01) ==
LOC: C.CTS 12:14
PROVIDERS: ATTEND Nurse Practitioner
DX: R10.32 Left lower quadrant pain (principal); R10.13 Epigastric pain; K57.30 Diverticulosis of large intestine without perforation or abscess without bleeding

== ENCOUNTER 2017-11-02 04:03 | Emergency (ER) | payer BC ==
[~2017-11-02] VITALS: Ht 175.3 cm; Wt 119.9 kg
[~2017-11-02 04:03] MED LIST changes: +CYAN100020 PO; +SYN75 PO
[2017-11-02 04:17] VITALS: TEMP 36.3; O2SAT 94; Ht 175.3 cm; Wt 119.9 kg
[2017-11-02 05:23] LABS: CKMB 2.4 ng/ml (0.5-3.6)
[2017-11-02] MEDS ORDERED: OPTIRAY 320 IV PRN ×2 (06:15)
[2017-11-02 06:31] VITALS: O2SAT 97
--- NOTE | 2017-11-02 06:54 | DIAGNOSTIC IMAGING REPORT ---
Study: CT angiography of the chest and aorta HISTORY: Chest pain. Back pain. FINDINGS: The thoracic aorta is normal in course and caliber. Minimal atherosclerotic change. No evidence for aneurysm or dissection. Lungs are considered clear. No focal infiltrate. No pneumothorax. No significant mediastinal or hilar adenopathy. Calcification the coronary arterial vasculature. Moderate degenerative change of the thoracic spine. No evidence for an acute compression deformity. IMPRESSION: 1. No evidence for aneurysm or dissection of the thoracic aorta. 2. Pulmonary vasculature enhances appropriately with no significant filling defect. 3. Lungs are clear. 4. Moderate degenerative disc change throughout the entire thoracic region. Electronically signed by: Winston Mansfield M.D. 11/02/2017 6:53 AM Dictated Date/Time: 11/02/2017 6:50 AM
--- NOTE | 2017-11-02 07:26 | DIAGNOSTIC IMAGING REPORT ---
ABDOMEN AND PELVIS CTA CLINICAL HISTORY: EVAL FOR DISSECTION, CHEST, UPPER ABD/BACK PAIN TECHNIQUE: Multiaxial CT images of the abdomen and pelvis were performed both before and after the intravenous administration of contrast to evaluate the aorta. Maximal intensity projection images were also obtained. COMPARISON STUDY: Abdomen and pelvis CT 11/01/2017. FINDINGS: The lung bases are clear. No pneumoperitoneum. No pneumatosis. L2 vertebral body hemangioma is again noted. There are 2, 1.5 cm enhancing lesions within the right hepatic lobe. These favor hemangiomas. Stable 10 mm cyst within the left hepatic lobe. The spleen, adrenal glands, and pancreas are unremarkable. No hydronephrosis. Bilateral peripelvic renal cysts. No retroperitoneal lymphadenopathy. There is a diverticulum at the second portion of the duodenum. The bladder is unremarkable. Residual contrast within the urinary system due to the recent CT examination. Colonic diverticulosis. No bowel wall thickening or obstruction. Normal appendix. Normal caliber abdominal aorta with no evidence for dissection. The iliac arteries are widely patent. The celiac, mesenteric, and renal arteries are also patent. IMPRESSION: 1. No evidence for an aortic dissection. 2. No acute process within the abdomen or pelvis. No significant change from the prior study. Electronically signed by: Josue Miller M.D. 11/02/2017 7:25 AM Dictated Date/Time: 11/02/2017 7:19 AM
--- NOTE | 2017-11-02 07:39 | DIAGNOSTIC IMAGING REPORT ---
SINGLE VIEW CHEST CLINICAL HISTORY: Atypical chest pain. FINDINGS: An AP, portable, upright chest radiograph is compared to study dated 02/22/2015 and correlated with chest CT dated 08/02/2016. The examination is degraded by portable technique and patient rotation. The heart is enlarged. The pulmonary vasculature is noncongested. There are low lung volumes. No airspace consolidation or pleural effusion is identified. No pneumothorax is seen. The bony thorax is grossly intact. IMPRESSION: Low lung volumes and cardiomegaly. No acute cardiopulmonary abnormality is seen. Electronically signed by: Kavon Moreno M.D. 11/02/2017 7:38 AM Dictated Date/Time: 11/02/2017 7:37 AM
[2017-11-02 07:45] VITALS: BP 146/82; PULSE 64
--- NOTE | 2017-11-02 09:07 | EMERGENCY ROOM VISIT NOTE ---
History Report prepared by [facility]: Nasima Becerra Under the Supervision of: Dr. Roxana Tabor D.O. First contact with patient: 04:18 Chief Complaint: CHEST PAIN Stated Complaint: CHEST PAIN,UPR ABDOMINAL/BACK PAIN History of Present Illness The patient is a 61 year old male who presents to the Emergency Room with complaints of an episode of chest pain starting prior to arrival. The patient states that he went home from the ED and ate a bowl of cereal. He states that his abdominal pain in his lower abdomen had subsided, but he now had a new pain in his upper abdomen. The patient states that he laid down to go to bed and felt his left arm start to cramp up. He states that he felt like he had pressure under his rib cage that made him short of breath. He complains of the pain radiating into the center of his back. He states that the pain was a 10/10 in severity. He currently rates his pain as a 0/10 in severity. He notes that the pain came right after eating and that he has a history of GERD. He notes that the pain lasted only 10-15 minutes. The patient denies ever having a pain like this before, a cardiac history, and a history of blood clots. He reports that he has had a stress test done that is negative. He notes a family history of heart disease. He notes a recent trip to [place]. Source of History: patient Onset: prior to arrival Position: chest Symptom Intensity: 10/10 Quality: pressure, cramping Timing: other (episode) Associated Symptoms: + SOB, + abdominal pain, + back pain Note: The patient complains of the pain radiating into his left arm. Review of Systems See HPI for pertinent positives & negatives. A total of 10 systems reviewed and were otherwise negative. Past Medical & Surgical Medical Problems: (1) Bicuspid cardiac valve (2) Diabetes mellitus type I (3) Dyslipidemia (4) GERD (gastroesophageal reflux disease) Surgical Problems: (1) Status post cholecystectomy Family History Cancer Diabetes mellitus Gallbladder disease Hypertension Kidney disease Kidney stones Seizures Social History Smoking Status: Never Smoker Alcohol Use: none Drug Use: none Marital Status: Housing Status: lives with family Occupation Status: retired Current/Historical Medications Scheduled Aspirin (Aspirin Chewable), 81 MG PO QAM Atorvastatin (Lipitor), 40 MG PO QAM Cholecalciferol (Vitamin D), 1 TAB PO QAM Cyanocobalamin (Vitamin B12), 1,000 MCG PO DAILY Dapagliflozin Propanediol (Farxiga), 1 TAB PO QAM Insulin Aspart (novoLOG INSULIN PUMP ), 1 EA N/A UD Levothyroxine Sodium (Synthroid), 75 MCG PO DAILY Metoprolol Succ (Toprol Xl) (Toprol-Xl), 25 MG PO QAM Omeprazole (Prilosec), 40 MG PO BID Tamsulosin Hcl (Flomax), 0.4 MG PO QAM Allergies Coded Allergies: Codeine (Verified Allergy, Unknown, swelling, 11/02/17) Physical Exam Vital Signs Date Time Temp Pulse Resp B/P (MAP) Pulse Ox O2 Delivery O2 Flow Rate FiO2 11/02/17 07:45 64 18 146/82 11/02/17 06:31 71 18 153/90 97 Room Air 11/02/17 05:20 60 18 138/79 96 Room Air 11/02/17 04:19 62 11/02/17 04:17 36.3 64 16 149/86 94 Room Air 11/02/17 04:17 94 Room Air Physical Exam Heart: Regular rate and rhythm. There is a normal S1 and S2, no clicks, or gallops appreciated. 2/6 systolic ejection murmur. Lungs: Clear to auscultation bilaterally with no wheezes, rales, or rhonchi. Abdomen: Soft, tender,mild tenderness to palpation in the epigastrium, non- distended, with good bowel sounds. There are no palpable pulsatile masses or hepatosplenomegaly. There is no guarding, rigidity, or rebound noted. Extremities: No evidence of cyanosis, clubbing, or edema. There are easily palpable peripheral pulses. Skin: warm and dry with good turgor and no rashes. Medical Decision & Procedures ER Provider Diagnostic Interpretation: Radiology results as stated below per my review and the radiologist's interpretation: CHEST X-RAY: The results were interpreted by me. Significant widened mediastinum compared to previous. ABDOMEN AND PELVIS CTA CLINICAL HISTORY: EVAL FOR DISSECTION, CHEST, UPPER ABD/BACK PAIN TECHNIQUE: Multiaxial CT images of the abdomen and pelvis were performed both before and after the intravenous administration of contrast to evaluate the aorta. Maximal intensity projection images were also obtained. COMPARISON STUDY: Abdomen and pelvis CT 11/01/2017. FINDINGS: The lung bases are clear. No pneumoperitoneum. No pneumatosis. L2 vertebral body hemangioma is again noted. There are 2, 1.5 cm enhancing lesions within the right hepatic lobe. These favor hemangiomas. Stable 10 mm cyst within the left hepatic lobe. The spleen, adrenal glands, and pancreas are unremarkable. No hydronephrosis. Bilateral peripelvic renal cysts. No retroperitoneal lymphadenopathy. There is a diverticulum at the second portion of the duodenum. The bladder is unremarkable. Residual contrast within the urinary system due to the recent CT examination. Colonic diverticulosis. No bowel wall thickening or obstruction. Normal appendix. Normal caliber abdominal aorta with no evidence for dissection. The iliac arteries are widely patent. The celiac, mesenteric, and renal arteries are also patent. IMPRESSION: 1. No evidence for an aortic dissection. 2. No acute process within the abdomen or pelvis. No significant change from the prior study. Electronically signed by: Josue Miller M.D. 11/02/2017 7:25 AM Dictated Date/Time: 11/02/2017 7:19 AM Study: CT angiography of the chest and aorta HISTORY: Chest pain. Back pain. FINDINGS: The thoracic aorta is normal in course and caliber. Minimal atherosclerotic change. No evidence for aneurysm or dissection. Lungs are considered clear. No focal infiltrate. No pneumothorax. No significant mediastinal or hilar adenopathy. Calcification the coronary arterial vasculature. Moderate degenerative change of the thoracic spine. No evidence for an acute compression deformity. IMPRESSION: 1. No evidence for aneurysm or dissection of the thoracic aorta. 2. Pulmonary vasculature enhances appropriately with no significant filling defect. 3. Lungs are clear. 4. Moderate degenerative disc change throughout the entire thoracic region. Electronically signed by: Winston Mansfield M.D. 11/02/2017 6:53 AM Dictated Date/Time: 11/02/2017 6:50 AM Laboratory Results Test 11/02/17 04:20 11/02/17 06:12 D-Dimer 420 ug/L FEU (0-500) Total Creatine Kinase 115 U/L (39-308) Creatine Kinase MB 2.4 ng/ml (0.5-3.6) Creatine Kinase MB Ratio 2.1 (0-3.0) Troponin I < 0.015 ng/ml (0-0.045) Laboratory results per my review. ECG Indication: chest pain Rate (beats per minute): 62 Rhythm: normal sinus Findings: no ectopy, other (flattened t waves laterally) Comparison ECG Date: REPEAT EKG Change: no significant change ED Course 0434: The patient was evaluated in room B6. A complete history and physical exam was performed. A twelve-lead EKG was obtained as described above. It had a poor baseline and was repeated and remains unremarkable. 0550: I revaluated the patient and updated him on why I would like to repeat his Troponin. 0603:The patient had a chest x-ray which was somewhat concerning for a widened mediastinum. Records show that a previous CT of his chest showed a 3 mm dilatation of his aorta. He will go for a CT scan of the abdomen/pelvis to rule out aortic dissection 0723: Upon reevaluation, the patient was doing okay. I discussed findings and results with him. He verbalized agreement of the treatment plan. The patient was discharged home. Medical Decision The patient is a 61 year old male who presents to the Emergency Room with complaints of an episode of chest pain starting prior to arrival. Differential diagnoses include anxiety, GERD, esophageal spasm, PE, cardiac ischemia. LABS: D-dimer 420 Total CK 115 CKMB 2.4 Troponin less than 0.015 Repeat troponin is less than 0.015 The patient was seen here earlier this evening with a suprapubic abdominal pain. The workup was negative for this. Upon arriving at home, and the patient ate a bowl of cereal and suddenly developed chest discomfort. Twelve- lead EKG and cardiac enzymes were unremarkable. I discussed the possibility that the patient had received IV Dilaudid during his initial visit to the emergency department and this could have caused relaxation of the lower esophageal sphincter and prompted an episode of GERD. Dissection study was unremarkable. The patient is being discharged to home to follow up with his PCP if symptoms persist. Medication Reconcilliation Current Medication List: was personally reviewed by me Blood Pressure Screening Patient's blood pressure: Elevated blood pressure Blood pressure disposition: Elevated BP felt to be situational Impression Primary Impression: Atypical chest pain Scribe Attestation The scribe's documentation has been prepared under my direction and personally reviewed by me in its entirety. I confirm that the note above accurately reflects all work, treatment, procedures, and medical decision making performed by me. Departure Information Dispostion Home / Self-Care Referrals Dudley Vergara MD (PCP) Forms Call Back Authorization, HOME CARE DOCUMENTATION FORM, IMPORTANT VISIT INFORMATION Patient Instructions My [facility] Additional Instructions Follow up with PCP for a recheck if symptoms continue
== END 2017-11-02 07:59 | disposition home or self-care (01) ==
LOC: C.EDB 04:04
DX: R07.89 Other chest pain (principal); E10.9 Type 1 diabetes mellitus without complications; E78.5 Hyperlipidemia, unspecified; K21.9 Gastro-esophageal reflux disease without esophagitis; Z96.41 Presence of insulin pump (external) (internal); Z90.49 Acquired absence of other specified parts of digestive tract; Z83.3 Family history of diabetes mellitus; Z82.49 Family history of ischemic heart disease and other diseases of the circulatory system; Z84.1 Family history of disorders of kidney and ureter; Z82.0 Family history of epilepsy and other diseases of the nervous system; Z79.82 Long term (current) use of aspirin; Z79.899 Other long term (current) drug therapy

== ENCOUNTER → 2017-11-07 | Outpatient (CLI) | payer BC ==
[2017-11-07 17:02] LABS: BASO % 0.3 %; BASO ABS # 0.02 K/uL (0-0.2); EOS % 1.8 %; EOS ABS # 0.12 K/uL (0-0.5); HEMATOCRIT 43.7 % (42-52); HEMOGLOBIN 14.7 g/dL (14.0-18.0); IG# 0.01 K/uL (0.00-0.02); LYMPH ABS # 1.76 K/uL (1.2-3.4); MEAN CELL VOLUME 86.7 fL (80-100); MEAN CORPUSCULAR HEMOGLOBIN 29.2 pg (25-34); MEAN CORPUSCULAR HGB CONC 33.6 g/dl (32-36); MEAN PLATELET VOLUME 9.9 fL (7.4-10.4); MONO % 7.8 %; MONO ABS # 0.53 K/uL (0.11-0.59); NEUT ABS # 4.32 K/uL (1.4-6.5); PLATELET COUNT 213 K/uL (130-400); RED CELL DISTRIBUTION WIDTH CV 13.9 % (11.5-14.5); RED CELL DISTRIBUTION WIDTH SD 43.8 fL (36.4-46.3); WHITE BLOOD COUNT 6.76 K/uL (4.8-10.8)
[2017-11-07 17:18] LABS: ALBUMIN 3.4 gm/dl (3.4-5.0); ALT/SGPT 23 U/L (12-78); BLOOD UREA NITROGEN 23 mg/dl (7-18); CALCIUM 8.8 mg/dl (8.5-10.1); CARBON DIOXIDE 27 mmol/L (21-32); CREATININE 1.15 mg/dl (0.60-1.40); GLUCOSE 194 mg/dl (70-99); POTASSIUM 4.4 mmol/L (3.5-5.1); SODIUM 139 mmol/L (136-145)
[2017-11-07 17:21] LABS: ALKALINE PHOSPHATASE 101 U/L (45-117); AST/SGOT 40 U/L (15-37)
== END | disposition home or self-care (01) ==
LOC: C.LABBC 13:08
PROVIDERS: ATTEND Internal Medicine
DX: E16.2 Hypoglycemia, unspecified (principal); E87.6 Hypokalemia; R10.84 Generalized abdominal pain; R07.9 Chest pain, unspecified

== ENCOUNTER → 2017-12-08 | Outpatient (CLI) | payer BC ==
[2017-12-08 10:01] LABS: ALBUMIN 3.3 gm/dl (3.4-5.0); ALT/SGPT 27 U/L (12-78); AST/SGOT 43 U/L (15-37); BLOOD UREA NITROGEN 23 mg/dl (7-18); CALCIUM 8.7 mg/dl (8.5-10.1); CARBON DIOXIDE 27 mmol/L (21-32); CREATININE 1.22 mg/dl (0.60-1.40); GLUCOSE 142 mg/dl (70-99); POTASSIUM 4.7 mmol/L (3.5-5.1); SODIUM 139 mmol/L (136-145)
[2017-12-08 10:04] LABS: ALKALINE PHOSPHATASE 99 U/L (45-117)
== END | disposition home or self-care (01) ==
LOC: C.LAB 06:53
PROVIDERS: ATTEND Nurse Practitioner Family
DX: K76.0 Fatty (change of) liver, not elsewhere classified (principal)

== ENCOUNTER → 2017-12-13 | Outpatient (CLI) | payer BC ==
[2017-12-19 09:28] LABS: ANA SCREEN TC 249X NEGATIVE (NEGATIVE); HEPATITIS B CORE IGM TC51854R NON-REACTIVE (NON-REACTIVE)
== END | disposition home or self-care (01) ==
LOC: C.LAB 13:15
PROVIDERS: ATTEND Registered Nurse
DX: D18.03 Hemangioma of intra-abdominal structures (principal); K83.8 Other specified diseases of biliary tract

== ENCOUNTER → 2017-12-20 | Outpatient (CLI) | payer BC ==
--- NOTE | 2017-12-20 09:31 | DIAGNOSTIC IMAGING REPORT ---
(LIVER) ABDOMEN LIMITED CLINICAL HISTORY: ELEVATED AST,BILE DUCT DILATATION, LIVER LESION COMPARISON STUDY: CT scan dated 11/02/2017, ultrasound dated 04/20/2017 FINDINGS: The examination was limited secondary to the patient's body habitus. No hepatic masses were visualized. The lesions described on the prior CT scan ultrasound were not delineated on the current study. The gallbladder is surgically absent. The common bile duct measures 4 mm. There is no right-sided hydronephrosis. The pancreas was nonvisualized. IMPRESSION: 1. Technically limited study 2. Nonvisualization the pancreas 3. Surgically absent gallbladder. No ductal dilatation. Electronically signed by: Caesar Noe M.D. 12/20/2017 9:30 AM Dictated Date/Time: 12/20/2017 9:28 AM
== END | disposition home or self-care (01) ==
LOC: C.ULTR 08:32
PROVIDERS: ATTEND Registered Nurse
DX: D18.03 Hemangioma of intra-abdominal structures (principal); K83.8 Other specified diseases of biliary tract; R74.0 Nonspecific elevation of levels of transaminase and lactic acid dehydrogenase [LDH]; Z90.49 Acquired absence of other specified parts of digestive tract

== ENCOUNTER → 2017-12-20 | Outpatient (CLI) | payer BC | END | disposition home or self-care (01) | LOC: C.LAB 17:07 | PROVIDERS: ATTEND Registered Nurse | DX: K76.89 Other specified diseases of liver (principal) ==

== ENCOUNTER → 2018-01-19 | Outpatient (CLI) | payer BC ==
[2018-01-19 13:30] LABS: HEMOGLOBIN A1C 6.7 % (4.5-5.6)
[2018-01-19 15:08] LABS: ALBUMIN 3.4 gm/dl (3.4-5.0); ALKALINE PHOSPHATASE 102 U/L (45-117); ALT/SGPT 31 U/L (12-78); AST/SGOT 40 U/L (15-37); TOTAL PROTEIN 6.9 gm/dl (6.4-8.2)
== END | disposition home or self-care (01) ==
LOC: C.LAB 11:25
PROVIDERS: ATTEND Nurse Practitioner Family
DX: K76.89 Other specified diseases of liver (principal); R74.0 Nonspecific elevation of levels of transaminase and lactic acid dehydrogenase [LDH]; E10.9 Type 1 diabetes mellitus without complications

== ENCOUNTER → 2018-03-01 | Outpatient (CLI) | payer BC ==
[2018-03-01 09:59] LABS: ALBUMIN 3.5 gm/dl (3.4-5.0); BLOOD UREA NITROGEN 20 mg/dl (7-18); CALCIUM 8.8 mg/dl (8.5-10.1); CARBON DIOXIDE 26 mmol/L (21-32); CREATININE 1.17 mg/dl (0.60-1.40); GLUCOSE 99 mg/dl (70-99); PHOSPHORUS 2.8 mg/dl (2.5-4.9); POTASSIUM 4.1 mmol/L (3.5-5.1); SODIUM 140 mmol/L (136-145)
== END | disposition home or self-care (01) ==
LOC: C.LAB 07:55
PROVIDERS: ATTEND Registered Nurse
DX: E10.9 Type 1 diabetes mellitus without complications (principal); D18.03 Hemangioma of intra-abdominal structures

== ENCOUNTER 2018-03-06 21:36 | Emergency (ER) | payer BC ==
[~2018-03-06] VITALS: Ht 172.7 cm; Wt 118.7 kg
[~2018-03-06 21:36] MED LIST changes: -OPTIRAY 320 IV PRN
[2018-03-06 21:42] VITALS: TEMP 36.4; Ht 172.7 cm; Wt 118.7 kg
[2018-03-06] MEDS ORDERED: ONDANSETRON INJ 2 MG/ML 2 ML VIAL IV STA (22:04)
--- NOTE | 2018-03-06 22:11 | EMERGENCY ROOM VISIT NOTE ---
History First contact with patient: 21:53 Chief Complaint: HYPOGLYCEMIA Stated Complaint: LOW BLOOD SUGAR Nursing Triage Summary: Pt had contrast today for a CT scan. Contrast had made him nauseous, hasn't been able to eat/drink from nausea. States his blood sugars have been low because he has been unable to tolerate po. Last BSG was 62 at home prior to arrival. Pt on insulin pump. Currently has it paused- unsure of his basal dose. Pt BSG on arrival 81. History of Present Illness The patient is a 62 year old male who presents to the Emergency Room with complaints of nausea. The patient reports that he had a CT scan today with oral and IV contrast to monitor a liver hemangioma. He states that he believes he is having a reaction to the oral contrast. He reports that he has diarrhea and abdominal cramping. He has been nauseous and has had difficulty eating anything. Because he has not been able to eat, he has had trouble keeping his blood sugar up. He is a type 1 diabetic and did turn his insulin pump off. He was able to eat some crackers prior to arrival and attempted to sit on some sheldon carol. He reports that he has had a similar reaction in the past to the oral contrast. He rates his overall discomfort a 5/10. Review of Systems A complete 10 point review of systems was reviewed with the patient with pertinent positives and negatives as per history of present illness. All else were negative. Past Medical/Surgical History Medical Problems: (1) Bicuspid cardiac valve (2) Diabetes mellitus type I (3) Dyslipidemia (4) GERD (gastroesophageal reflux disease) Surgical Problems: (1) Status post cholecystectomy Family History Cancer Diabetes mellitus Gallbladder disease Hypertension Kidney disease Kidney stones Seizures Social History Smoking Status: Never Smoker Alcohol Use: none Drug Use: none Marital Status: Housing Status: lives with family Occupation Status: retired Current/Historical Medications Scheduled Aspirin (Aspirin Chewable), 81 MG PO QAM Atorvastatin (Lipitor), 40 MG PO QAM Cholecalciferol (Vitamin D), 1 TAB PO QAM Cyanocobalamin (Vitamin B12), 1,000 MCG PO DAILY Dapagliflozin Propanediol (Farxiga), 1 TAB PO QAM Insulin Aspart (novoLOG INSULIN PUMP ), 1 EA N/A UD Levothyroxine Sodium (Synthroid), 75 MCG PO DAILY Metoprolol Succ (Toprol Xl) (Toprol-Xl), 25 MG PO QAM Omeprazole (Prilosec), 40 MG PO BID Tamsulosin Hcl (Flomax), 0.4 MG PO QAM Physical Exam Vital Signs Date Time Temp Pulse Resp B/P (MAP) Pulse Ox O2 Delivery O2 Flow Rate FiO2 03/07/18 00:24 71 16 127/67 98 03/06/18 23:54 71 16 127/67 98 Room Air 03/06/18 21:52 80 03/06/18 21:42 36.4 79 16 138/90 98 Room Air Physical Exam VITALS: Vitals are noted on the nurse's note and reviewed by myself. Vital signs stable. GENERAL: This is a 62-year-old male, in no acute distress, nondiaphoretic, well- developed well-nourished. SKIN: The skin was without rashes. EARS: External auditory canals clear, tympanic membranes pearly singh without erythema or effusion bilaterally. EYES: Pupils equal round and reactive to light and accommodation. MOUTH: Mucous membranes moist. NECK: Supple without nuchal rigidity. HEART: Regular rate and rhythm without murmurs gallops or rubs. LUNGS: Clear to auscultation bilaterally without wheezes, rales or rhonchi. ABDOMEN: Positive bowel sounds x 4. Soft, diffuse mild tenderness to palpation. No guarding or rebound tenderness. NEURO: Patient was alert and oriented to person place and time. Medical Decision & Procedures Laboratory Results 03/06/18 21:54 Red Blood Count 5.23, Mean Corpuscular Volume 85.5, Mean Corpuscular Hemoglobin 30.6, Mean Corpuscular Hemoglobin Concent 35.8, Mean Platelet Volume 9.2, Neutrophils (%) (Auto) 84.0, Lymphocytes (%) (Auto) 9.3, Monocytes (%) (Auto) 5.8, Eosinophils (%) (Auto) 0.4, Basophils (%) (Auto) 0.3, Neutrophils # (Auto) 9.08, Lymphocytes # (Auto) 1.00, Monocytes # (Auto) 0.63, Eosinophils # (Auto) 0.04, Basophils # (Auto) 0.03 03/06/18 21:54 Test 03/06/18 21:54 03/06/18 23:52 White Blood Count 10.80 K/uL (4.8-10.8) Red Blood Count 5.23 M/uL (4.7-6.1) Hemoglobin 16.0 g/dL (14.0-18.0) Hematocrit 44.7 % (42-52) Mean Corpuscular Volume 85.5 fL (80-100) Mean Corpuscular Hemoglobin 30.6 pg (25-34) Mean Corpuscular Hemoglobin Concent 35.8 g/dl (32-36) Platelet Count 215 K/uL (130-400) Mean Platelet Volume 9.2 fL (7.4-10.4) Neutrophils (%) (Auto) 84.0 % Lymphocytes (%) (Auto) 9.3 % Monocytes (%) (Auto) 5.8 % Eosinophils (%) (Auto) 0.4 % Basophils (%) (Auto) 0.3 % Neutrophils # (Auto) 9.08 K/uL (1.4-6.5) Lymphocytes # (Auto) 1.00 K/uL (1.2-3.4) Monocytes # (Auto) 0.63 K/uL (0.11-0.59) Eosinophils # (Auto) 0.04 K/uL (0-0.5) Basophils # (Auto) 0.03 K/uL (0-0.2) RDW Standard Deviation 43.7 fL (36.4-46.3) RDW Coefficient of Variation 14.1 % (11.5-14.5) Immature Granulocyte % (Auto) 0.2 % Immature Granulocyte # (Auto) 0.02 K/uL (0.00-0.02) Anion Gap 7.0 mmol/L (3-11) Est Creatinine Clear Calc Drug Dose 70.5 ml/min Estimated GFR () 64.2 Estimated GFR (Non- 55.4 BUN/Creatinine Ratio 19.3 (10-20) Calcium Level 8.8 mg/dl (8.5-10.1) Total Bilirubin 0.4 mg/dl (0.2-1) Aspartate Amino Transf (AST/SGOT) 51 U/L (15-37) Alanine Aminotransferase (ALT/SGPT) 27 U/L (12-78) Alkaline Phosphatase 115 U/L (45-117) Total Protein 8.3 gm/dl (6.4-8.2) Albumin 4.0 gm/dl (3.4-5.0) Globulin 4.3 gm/dl (2.5-4.0) Albumin/Globulin Ratio 0.9 (0.9-2) Bedside Glucose 153 mg/dl (70-99) Medications Administered Medications (Trade) Dose Ordered Sig/Rosey Route Start Time Stop Time Status Last Admin Dose Admin Ondansetron HCl (Zofran Inj) 4 mg NOW STAT IV 03/06/18 22:04 03/06/18 22:06 DC 03/06/18 22:09 4 MG Sodium Chloride 500 ml @ 500 mls/hr Q1H STAT IV 03/06/18 22:38 03/06/18 23:37 DC 03/06/18 22:44 500 MLS/HR Ondansetron HCl (ZOFRAN ODT 4MG Home Pack) 1 homepack UD ONCE PO 03/07/18 00:00 03/07/18 00:01 DC 03/07/18 00:22 1 HOMEPACK Glucagon (Glucagon Inj) 1 mg NOW STAT SQ 03/06/18 23:57 03/07/18 00:00 DC 03/07/18 00:21 1 MG Medical Decision Differential diagnosis includes hypoglycemia, electrolyte imbalance, infection, adverse reaction to medication, among others. The patient is a 62-year-old male who presents today complaining of nausea and diarrhea after a CT scan with IV and oral contrast. Patient reports he has had a similar reaction in the past to the oral contrast. He has been very nauseous and therefore has not been able to eat or drink anything to raise his blood sugar. Labs revealed no concerning leukocytosis, anemia or electrolyte abnormalities. Creatinine borderline elevated which is baseline for the patient. Initial glucose was found to be 81. Patient was medicated with IV Zofran and this improved his nausea. He was unable to eat and drink something. His glucose was checked 2 additional times and was trending upward at 150 when he was discharged. He was given 1 dose of glucagon to take home, as he states his is . He was advised to continue to check his blood sugar closely. Based on the patient's presentation and work up, I feel the patient is stable for outpatient treatment. The patient was educated to return to the emergency department for any worsening of their current condition or new/concerning symptoms. He will follow up with his PCP. Medication Reconcilliation Current Medication List: was personally reviewed by me Blood Pressure Screening Patient's blood pressure: Normal blood pressure Impression Primary Impression: Hypoglycemia Departure Information Dispostion Home / Self-Care Condition GOOD Referrals Dudley Vergara MD (PCP) Patient Instructions My [facility] Additional Instructions You have been prescribed Zofran to be used for any nausea or vomiting. Take as prescribed. Make sure to drink plenty of fluids and keep some sugar in your system to keep your blood sugar up. Contact your primary care provider to schedule follow-up as needed. Return to the emergency department with worsening nausea, vomiting, fevers, severe abdominal pain or any other new/concerning symptoms.
[2018-03-06 22:15] LABS: BASO % 0.3 %; BASO ABS # 0.03 K/uL (0-0.2); EOS % 0.4 %; EOS ABS # 0.04 K/uL (0-0.5); HEMATOCRIT 44.7 % (42-52); IG# 0.02 K/uL (0.00-0.02); LYMPH % 9.3 %; MEAN CELL VOLUME 85.5 fL (80-100); MEAN CORPUSCULAR HEMOGLOBIN 30.6 pg (25-34); MEAN CORPUSCULAR HGB CONC 35.8 g/dl (32-36); MEAN PLATELET VOLUME 9.2 fL (7.4-10.4); MONO % 5.8 %; MONO ABS # 0.63 K/uL (0.11-0.59); NEUT ABS # 9.08 K/uL (1.4-6.5); PLATELET COUNT 215 K/uL (130-400); RED CELL DISTRIBUTION WIDTH CV 14.1 % (11.5-14.5); RED CELL DISTRIBUTION WIDTH SD 43.7 fL (36.4-46.3)
[2018-03-06] MEDS ORDERED: SODIUM CHLORIDE 0.9% 500ML 500 ML IV STA (22:38)
[2018-03-06 22:46] LABS: CALCIUM 8.8 mg/dl (8.5-10.1); CREATININE 1.36 mg/dl (0.60-1.40); POTASSIUM 3.4 mmol/L (3.5-5.1)
[2018-03-06 22:49] LABS: TOTAL PROTEIN 8.3 gm/dl (6.4-8.2)
[2018-03-06] MEDS ORDERED: GLUCAGON FOR INJ 1 MG VIAL SQ STA (23:57)
[2018-03-07] MEDS ORDERED: ONDANSETRON HOME PACK 4MG OD TAB PO ONE
[2018-03-07 00:24] VITALS: BP 127/67; PULSE 71; O2SAT 98
== END 2018-03-07 00:24 | disposition home or self-care (01) ==
LOC: C.EDB 21:37
DX: E10.649 Type 1 diabetes mellitus with hypoglycemia without coma (principal); E78.5 Hyperlipidemia, unspecified; K21.9 Gastro-esophageal reflux disease without esophagitis; Z96.41 Presence of insulin pump (external) (internal); Z79.82 Long term (current) use of aspirin; Z79.4 Long term (current) use of insulin; Z79.899 Other long term (current) drug therapy

== ENCOUNTER → 2018-03-06 | Outpatient (CLI) | payer BC ==
[~2018-03-06] MED LIST changes: +OPTIRAY 320 IV PRN
--- NOTE | 2018-03-06 11:01 | DIAGNOSTIC IMAGING REPORT ---
LIVER (ABDOMEN) COMBO HISTORY: 62 years-old Male D18.03 Liver [id number] Elevated AST (SGOT)K76.89 Liver cys follow-up study in a patient with history of liver hemangiomas and elevated AST COMPARISON: CTA of the abdomen 11/02/2017, liver ultrasound 12/20/2017, CT abdomen and pelvis 11/01/2017, CTA chest 02/22/2015 TECHNIQUE: Multiple axial CT images of the abdomen were obtained both with and without the use of 120 mL Optiray 320 IV contrast utilizing liver mass protocol. A dose lowering technique was used consistent with the principals of LUCAS. FINDINGS: Imaged inferior cardiac chambers are mildly enlarged. Aortic annular calcifications are noted. No pericardial effusion. There is minimal dependent subsegmental bibasilar atelectasis with 5 mm solid nodule of the lateral basal segment left lower lobe, image 69 series 7, unchanged dating back to 2014 exam. No pneumatosis or pneumoperitoneum identified. Prior cholecystectomy. Spleen, pancreas and adrenal glands are within normal limits. 10 x 9 mm nonenhancing cyst of the left hepatic lobe, image 101 series 7 is unchanged. No intrahepatic biliary ductal dilation. Noncontrast scan demonstrates no evidence of hepatic steatosis. There is a 1.5 cm lesion within the inferior right hepatic lobe, image 24 series 4 which is slightly low attenuating on the noncontrast scan and demonstrates peripheral discontinuous nodular enhancement on the arterial phase with central filling on the portal venous and delayed images. Additionally, there is a 1.6 cm lesion within the posterior right hepatic lobe which is low attenuating on the noncontrast study and demonstrates peripheral discontinuous nodular enhancement with central filling on the portal venous and delayed images. No additional abnormal enhancement about the liver identified. Mild nonspecific bilateral perinephric stranding with renal sinus cysts present bilaterally. No collecting system filling defects. No renal calculi or hydronephrosis identified. Mild to moderate atherosclerosis of the aorta without aneurysm. No bulky adenopathy. Nonspecific mildly prominent 7 mm periesophageal lymph node on image 26 of series 7 appears unchanged. Small duodenal diverticulum. No bowel obstruction or focal bowel wall thickening. Colonic diverticulosis without diverticulitis. Visualized appendix appears normal. Soft tissues and bony structures appear unremarkable. Vertebral body hemangioma noted at L1. Mild multilevel endplate spurring, facet arthrosis and intervertebral disc space narrowing. IMPRESSION: 1. 1.5 and 1.6 cm lesions of the right hepatic lobe as above demonstrate imaging characteristics most compatible with hepatic hemangiomas. Additionally, there is a 10 mm cyst of the left hepatic lobe. 2. Prior cholecystectomy. 3. Colonic diverticulosis without diverticulitis. 4. Additional findings as above. The above report was generated using voice recognition software. It may contain grammatical, syntax or spelling errors. Electronically signed by: Phani Soliman M.D. 03/06/2018 11:00 AM Dictated Date/Time: 03/06/2018 10:44 AM
== END | disposition home or self-care (01) ==
LOC: C.CTS 09:21
PROVIDERS: ATTEND Registered Nurse
DX: D18.03 Hemangioma of intra-abdominal structures (principal); K76.89 Other specified diseases of liver; R74.0 Nonspecific elevation of levels of transaminase and lactic acid dehydrogenase [LDH]; K57.90 Diverticulosis of intestine, part unspecified, without perforation or abscess without bleeding

== ENCOUNTER → 2018-05-12 | Outpatient (CLI) | payer BC ==
[2018-05-12 15:42] LABS: BASO % 0.2 %; BASO ABS # 0.01 K/uL (0-0.2); EOS % 1.6 %; HEMATOCRIT 42.3 % (42-52); HEMOGLOBIN 14.2 g/dL (14.0-18.0); IG# 0.02 K/uL (0.00-0.02); LYMPH % 27.4 %; LYMPH ABS # 1.77 K/uL (1.2-3.4); MEAN CELL VOLUME 87.2 fL (80-100); MEAN CORPUSCULAR HEMOGLOBIN 29.3 pg (25-34); MEAN CORPUSCULAR HGB CONC 33.6 g/dl (32-36); MEAN PLATELET VOLUME 9.2 fL (7.4-10.4); MONO % 6.5 %; MONO ABS # 0.42 K/uL (0.11-0.59); NEUT ABS # 4.13 K/uL (1.4-6.5); PLATELET COUNT 183 K/uL (130-400); RED CELL DISTRIBUTION WIDTH CV 14.4 % (11.5-14.5); RED CELL DISTRIBUTION WIDTH SD 45.9 fL (36.4-46.3); WHITE BLOOD COUNT 6.45 K/uL (4.8-10.8)
[2018-05-12 16:15] LABS: BLOOD UREA NITROGEN 23 mg/dl (7-18); CALCIUM 8.3 mg/dl (8.5-10.1); CARBON DIOXIDE 29 mmol/L (21-32); CREATININE 1.31 mg/dl (0.60-1.40); GLUCOSE 149 mg/dl (70-99); POTASSIUM 4.6 mmol/L (3.5-5.1); SODIUM 139 mmol/L (136-145)
== END | disposition home or self-care (01) ==
LOC: C.LAB 15:18
PROVIDERS: ATTEND Internal Medicine
DX: R25.2 Cramp and spasm (principal)

== ENCOUNTER → 2018-05-17 | Outpatient (CLI) | payer BC | END | disposition home or self-care (01) | LOC: C.LAB 15:25 | PROVIDERS: ATTEND Internal Medicine | DX: R79.0 Abnormal level of blood mineral (principal) ==